=== PATIENT | female | born 1985 | race Hispanic/Latino ===

== ENCOUNTER 2016-08-01 00:41 | Inpatient (IN) ==
[2016-08-01 01:40] LABS: MANUAL DIFF NEEDED? NO
[2016-08-01 01:48] LABS: URINE SOURCE VOIDED
[2016-08-01 02:03] LABS: BASO% 0.2 % (0.0-0.8); HEMATOCRIT 31.5 % (37.0-47.0); HEMOGLOBIN 10.1 g/dL (12.0-16.0); IMM GRAN# 0.05 X1000 (0.0-0.04); IMM GRAN% 0.5 % (0.0-0.5); LYMPH# 2.21 X1000 (1.2-3.4); LYMPH% 21.8 % (20.5-51.1); MCH 24.2 PG (27-31); MCHC 32.1 g/dL (33-37); MCV 75.4 FL (81-99); MONO# 0.64 X1000 (0.11-0.59); MONO% 6.3 % (1.7-9.3); MPV 10.5 FL (7.4-10.4); NEUT% 70.2 % (42.2-75.2); PLT 306 X1000 (130-400); RBC 4.18 XMIL (4.2-5.4)
[2016-08-01 02:09] LABS: UR AMPHETAMINES QUAL NONE DETECTED (NONE DETECT); UR BARBITUATES QUAL NONE DETECTED (NONE DETECT); UR BENZODIAZEPIN QUAL NONE DETECTED (NONE DETECT); UR CANNABINOIDS QUAL NONE DETECTED (NONE DETECT); UR COCAINE QUAL NONE DETECTED (NONE DETECT); UR MDMA QUAL NONE DETECTED (NONE DETECT); UR METHADONE QUAL NONE DETECTED (NONE DETECT); UR METHAMPHETAMINE QUAL NONE DETECTED (NONE DETECT); UR OPIATES QUAL NONE DETECTED (NONE DETECT); UR OXYCODONE QUAL NONE DETECTED (NONE DETECT); UR PCP QUAL NONE DETECTED (NONE DETECT); UR TCA QUAL NONE DETECTED (NONE DETECT)
[2016-08-01 02:15] LABS: BILIRUBIN URINE NEGATIVE (NEGATIVE); BLOOD URINE NEGATIVE (NEGATIVE); CLARITY CLEAR (CLEAR); COLOR YELLOW; GLUCOSE URINE NEGATIVE (NEGATIVE); LEUKOCYTES URINE NEGATIVE (NEGATIVE); NITRITE URINE NEGATIVE (NEGATIVE); PROTEIN URINE NEGATIVE (NEGATIVE); SP GRAVITY URINE 1.015; UROBILINOGEN URINE NORMAL
[2016-08-01 02:15] LABS: RAPID HIV PRESUMPTIVE NEGATIVE; RPR NON-REACTIVE (NONREACTIVE)
[2016-08-01] MEDS ORDERED: PITOCIN 30 UNITS/LR 30 UNITS/500 ML IV.SOLN IV SCH (08:01)
[2016-08-01] MEDS ORDERED: ZOFRAN IV PRN (08:01)
[2016-08-01] MEDS ORDERED: REGLAN PO ONE (08:01)
[2016-08-01] MEDS ORDERED: LR 500 ML IV ONE (08:01)
[2016-08-01] MEDS ORDERED: PEPCID PO PRN (08:01)
[2016-08-01] MEDS ORDERED: PEPCID PO ONE (08:01)
[2016-08-01] MEDS ORDERED: AMPICILLIN 2 GM/NS 2 GM/100 ML IVPB IV ONE (08:01)
[2016-08-01] MEDS ORDERED: KEFZOL 1 GM/D5W 1 GM/50 ML IVPB IV PRN (08:01)
[2016-08-01] MEDS ORDERED: TYLENOL PO PRN (08:01)
[2016-08-01] MEDS ORDERED: PEPCID IV PRN (08:01)
[2016-08-01] MEDS ORDERED: SODIUM CHLORIDE 0.9% INJ SCH (08:15)
[2016-08-01] MEDS ORDERED: XYLOCAINE-MPF 1% ONE (08:20)
[2016-08-01] MEDS ORDERED: MINERAL OIL MISC ONE (08:20)
[2016-08-01] MEDS: LR 1,000 ML IV SCH ×2 (08:40→13:56)
[2016-08-01] MEDS: STADOL IV PRN ×2 (10:20→13:18)
[2016-08-01] MEDS ORDERED: AMPICILLIN 1 GM/NS 1 GM/50 ML IVPB IV SCH (12:02)
[2016-08-01] MEDS ORDERED: CYTOTEC PO PRN (14:20)
[2016-08-01] MEDS ORDERED: XYLOCAINE-MPF 1% INJ PRN (14:20)
[2016-08-01] MEDS ORDERED: BOOSTRIX VACCINE IM ONE (14:20)
[2016-08-01] MEDS ORDERED: MINERAL OIL PO PRN (14:20)
[2016-08-01] MEDS ORDERED: AMBIEN PO PRN (14:20)
[2016-08-01] MEDS ORDERED: PITOCIN 30 UNITS/LR 30 UNITS/500 ML IV.SOLN IV ONE (14:20)
[2016-08-01] MEDS ORDERED: PITOCIN IM PRN (14:20)
[2016-08-01] MEDS ORDERED: BENADRYL PO PRN (14:20)
[2016-08-01] MEDS ORDERED: M-M-R II VACCINE SUBQ ONE (14:20)
[2016-08-01] MEDS ORDERED: PITOCIN 20 UNITS/LR 20 UNITS/1,000 ML IV.SOLN IV SCH (14:20)
[2016-08-01] MEDS ORDERED: BENADRYL IV PRN (14:20)
[2016-08-01] MEDS ORDERED: HYDROXYZINE PO PRN (14:20)
[2016-08-01] MEDS ORDERED: HYDROXYZINE IM PRN (14:20)
[2016-08-01] MEDS ORDERED: PERI MEDS (DERMOPLAST/NUPERCAINAL/TUCKS) MISC PRN (14:20)
--- NOTE | 2016-08-01 14:35 | HISTORY AND PHYSICAL ---
HISTORY OF PRESENT ILLNESS: Patient is a 31-year-old, -0-0-4 with intrauterine at unknown gestation, term by fundal height. Patient with no care. Presented complaining of contractions. Cervix noted to be 4-5 cm with irregular contractions. Patient subsequently admitted in labor. PAST MEDICAL HISTORY: None. PAST SURGICAL HISTORY: None. OB HISTORY: Spontaneous vaginal delivery x4. 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 SOCIAL HISTORY: No tobacco use. PHYSICAL EXAMINATION: VITAL SIGNS: Patient afebrile. Vital signs stable. Patient in no acute distress. LUNGS: Respirations nonlabored. ABDOMEN: Soft, gravid, nontender to palpation. PELVIC: Cervix 4.5-50%, -3. Membranes intact. ASSESSMENT AND PLAN: A 31-year-old, -0-0-4 with intrauterine at unknown gestation, presents in labor. Will admit and augment as needed. cc: Noa Gonzales MD
--- NOTE | 2016-08-01 14:45 | OPERATIVE NOTE ---
PROCEDURE DATE: 08/01/2016 Patient underwent sterile controlled spontaneous vaginal delivery of a viable male , weighing 6 pounds 10 ounces with Apgars of 9 and 10. No nuchal cord. No dystocia. Cord doubly clamped and cut. Infant handed off to waiting pediatric staff. The placenta delivered spontaneously and intact. Uterus firm with Pitocin and massage. Uterus, cervix, and vagina explored. No lacerations noted. ESTIMATED BLOOD LOSS: 200 mL. COMPLICATIONS: None. cc: Noa Gonzales MD
[2016-08-01 16:05] LABS: RUBELLA SCREEN NON IMMUNE (IMMUNE)
[2016-08-01] MEDS: NORCO-10 PO PRN (16:18)
[2016-08-01] MEDS: PERICOLACE PO SCH (21:03)
[2016-08-02 06:44] LABS: HEMATOCRIT 26.8 % (37.0-47.0); HEMOGLOBIN 8.4 g/dL (12.0-16.0); MCH 23.8 PG (27-31); MCHC 31.3 g/dL (33-37); MCV 75.9 FL (81-99); MPV 10.5 FL (7.4-10.4); RBC 3.53 XMIL (4.2-5.4)
[2016-08-02] MEDS: NORCO-10 PO PRN (09:19)
[2016-08-02] MEDS: MOTRIN PO PRN ×2 (09:20→20:50)
[2016-08-02 10:51] LABS: HIV ANTIBODY SCREEN SEE COMMENTS
--- NOTE | 2016-08-02 11:37 | PROGRESS NOTE ---
DATE: 08/02/2016 SUBJECTIVE: day 1. Ms. Whaley communicates no complaints. OBJECTIVE: Her vital signs are stable. She is afebrile. Physical examination within normal limits. Abdomen distended, uterus is firm, nontender. LABS: Hemoglobin 8.4. GC and chlamydia negative. HIV negative. Drug screen negative. RPR nonreactive. She is nonimmune to rubella, so she should be getting an MMR before she leaves. I expect discharge in the morning. cc: MD Noa Pinzon MD
[2016-08-02 11:47] LABS: HEPATITIS B SURFACE ANTIGEN SEE COMMENTS
[2016-08-02] MEDS: NORCO-5 PO PRN (20:50)
[2016-08-02] MEDS: PERICOLACE PO SCH (20:50)
[2016-08-03] MEDS: NORCO-5 PO PRN (06:59)
[2016-08-03] MEDS: MOTRIN PO PRN (06:59)
[2016-08-03] MEDS: NORCO-10 PO PRN (12:34)
== END 2016-08-03 12:45 | disposition home or self-care (01) ==
LOC: P.OPLD 00:41 → P.LD 00:53 → P.WC 17:33
PROVIDERS: ADMIT Obstetrics & Gynecology; ATTEND Obstetrics & Gynecology